=== PATIENT | male | born 1940 | race Hispanic/Latino ===

== ENCOUNTER 2017-10-23 13:58 | Observation (INO) | payer MEDICARE ==
[~2017-10-23 13:58] MED LIST: ISOVUE-370 76%-LOCM 1 ML ONE
[2017-10-23 15:30] LABS: Hemoglobin 10.3 g/dL (14.0-18.0); Mean Corpuscular HGB CONC 32.5 g/dL (32.0-36.0); Mean Corpuscular Hemoglobin 31.1 pg (27.0-31.0); Mean Corpuscular Volume 95.6 fl (80.0-94.0); Mean Platelet Volume 6.6 fL (7.4-10.4); Platelet Count 290 thou/uL (130-400); RBC Distribution Width 14.8 % (11.5-14.5); Red Blood Cell (RBC) Count 3.32 mill/uL (4.70-6.10); White Blood Cell (WBC) Count 6.3 thou/uL (4.8-10.8)
[2017-10-23 15:35] LABS: INR-International Normal Ratio 1.1; PTT 27.7 SEC (22.9-36.1); Prothrombin Time 14.6 SEC (12.0-14.7)
--- NOTE | 2017-10-23 15:44 | RAD ---
PORTABLE CHEST ONE VIEW 10/23/17 at 2:43 p.m. HISTORY: Syncope. FINDINGS: Comparison is made with the exam of 12/06/15. There are changes of median sternotomy. The heart size is stable. There is continued elevation of the left hemidiaphragm. Left sided AICD remains in place. No lobar consolidation, pneumothoraces, or lar ge effusions are seen. There is mild atelectatic changes of the left lung base. POS: [facility]
[2017-10-23 15:49] LABS: ALT (SGPT) 11 U/L (8-55); AST (SGOT) 24 U/L (5-34); Albumin 3.4 g/dL (3.4-4.8); Alkaline Phosphatase 35 U/L (40-150); Anion Gap 8 mmol/L (10-20); Anisocytosis SLIGHT = 6-15 cells (100X) (0-5/hpf); BUN (Urea Nitrogen) 12 mg/dL (8.4-25.7); Band 1 % (5-11); Bilirubin, Total 0.3 mg/dL (0.2-1.2); CK (CPK) 174 U/L (30-200); Calc. Creatinine Clearance 0 mL/min (70-130); Calcium 8.3 mg/dL (7.8-10.44); Carbon Dioxide 27 mmol/L (23-31); Chloride 108 mmol/L (98-107); Eosinophils 4 % (0-10); Estimated GFR-MDRD 53; Globulin 2.1 g/dL (2.4-3.5); Glucose 108 mg/dL (83-110); Lipase 43 U/L (8-78); Lymphocytes 10 % (21-51); MDiff Complete? YES; Monocytes 12 % (0-10); Neutrophil 72 % (42-75); PLT Morphology Comment Appears Adequate; Polychromasia SLIGHT = 2-3 cells (100X) (0-2/hpf); Potassium 4.4 mmol/L (3.5-5.1); Protein, Total 5.5 g/dL (5.8-8.1); Reactive Lymphocytes 1 % (0-10); Sodium 139 mmol/L (136-145)
[2017-10-23 15:54] LABS: CKMB 5.4 ng/mL (0-6.6); Troponin I 0.098 ng/mL (< 0.028)
--- NOTE | 2017-10-23 16:24 | CT ---
CT BRAIN WITHOUT CONTRAST 10/23/17 HISTORY: Syncope. FINDINGS: Comparison made with exam of 07/18/15. Encephalomalacic changes in the left temporal and frontal lobes are stable. No evidence of acute infa rct, hemorrhage, midline shift or abnormal extra-axial fluid collections are seen. The ventricular si ze is stable and the basilar cisterns patent. Postop changes in the left calvarium are again seen. IMPRESSION: No CT evidence of acute intracranial process. POS: [facility]
[2017-10-23 16:26] LABS: Magnesium 2.2 mg/dL (1.6-2.6)
--- NOTE | 2017-10-23 16:39 | CT ---
CT PULMONARY ANGIOGRAM WITH IV CONTRAST AND 3D POSTPROCESSIN10/23/17 HISTORY: Syncope, dizziness. FINDINGS: The opacification of the pulmonary arterial vasculature suboptimal. There is better opacification of the thoracic aorta. No filling defects are seen in the central pulmonary arteries. Peripheral embolis m cannot be excluded on this study. There are vascular calcifications without aneurysm or dissection of the thoracic aorta. No pericardial or pleural effusions are seen. There are atelectatic changes of the lower lung gregory. No pneumothoraces are seen. No lobar consolidation is noted. There are degene rative changes in the spine. IMPRESSION: No CT evidence of central pulmonary embolism. POS: [facility]
[2017-10-23 16:52] LABS: Bilirubin Negative (Negative); Blood, Urine Negative (Negative); Clarity CLEAR (Clear); Glucose, Urine (Dipstick) Negative (Negative); Leukocyte Negative (Negative); Nitrite Negative (Negative); Protein, Urine (Dipstick) Negative (Neg-Trace); Specific Gravity, Urine 1.014 (1.002-1.036); Urobilinogen 0.2 mg/dL (0.2-1.0)
[2017-10-23 19:22] LABS: Troponin I 0.099 ng/mL (< 0.028)
[2017-10-23] MEDS ORDERED: Sodium Chloride 0.45% 1,000 ML IV SCH (19:30)
[2017-10-23] MEDS: levETIRAcetam 500 MG TAB PO SCH (20:24)
[2017-10-23 20:58] VITALS: BMI 23.9
[2017-10-23] MEDS ORDERED: Atorvastatin Calcium 40 MG TAB PO SCH (21:00)
[2017-10-23] MEDS ORDERED: Gabapentin 300 MG CAP PO SCH (21:00)
[2017-10-23] MEDS ORDERED: Carvedilol 6.25 MG TAB PO SCH (21:00)
[2017-10-23] MEDS ORDERED: Docusate 100 MG CAP PO PRN (21:05)
[2017-10-23] MEDS ORDERED: Morphine 5 MG/ML SYRINGE SLOW IVP PRN (21:07)
[2017-10-23] MEDS ORDERED: traMADol HCl 50 MG TAB PO PRN (21:07)
[2017-10-23] MEDS ORDERED: Magnesium Citrate 300 ML BOT PO SCH (21:15)
[2017-10-23] MEDS: Carvedilol 3.125 MG TAB PO SCH (21:20)
[2017-10-23 22:23] LABS: Troponin I 0.091 ng/mL (< 0.028)
--- NOTE | 2017-10-24 00:51 | HP ---
DATE OF SERVICE: 10/23/2017 PRIMARY CARE PHYSICIAN: Dr. Giorgio Dunn. CHIEF COMPLAINT: Syncopal episode. HISTORY OF PRESENT ILLNESS: The patient states that when he has been getting up recently he has been getting dizzy. 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 It is unclear if it is vertiginous in natu re. He does report after he stood up from the chair attempted to he fell down and he suffered injury to his right frontal bone with no fracture on CT scan in the emergency department. No subdural blee ding. The patient states his pain has been controlled with Tylenol prior. Hedoes feel he is somewha t nauseated and constipated at this point in time requesting something to help clear them out. He castro s no other acute complaints or reported sick contacts in the last week here. On reviewing his said m edical record and chart in clinic system, he had an echo ran with [facility] last month , ejection fraction of 25%-30%. This is down from prior 2-3 years ago. He does have a history of ca rdiomyopathy, for which he was placed AICD prior. The patient has been transitioned on some of his h ome medications. More recently following that finding of worsening systolic dysfunction including En tresto, which his son brought him his medications, he appears to be compliant with, could not appear to be on Plavix any longer according to clinic records. He has been found to have seizure disorder, for which he is on gabapentin and Keppra. He has had a syncopal episode approximately 2 years ago wi th a dislocation to his finger similarly given his current heart condition as well. REVIEW OF SYSTEMS: No fevers, no chills, no cough, no congestion. Positive nausea, positive constip ation, no diarrhea, no abdominal pain. Positive head injury. Positive headache. No lower extremity edema. No chest pain. No shortness of breath. Positive word finding and speech difficulty. PHYSICAL EXAMINATION: VITAL SIGNS: Temperature of 98.4, pulse of 80, blood pressure 161/71, respiratory rate of 16, oxygen saturation 100% on room air. LABORATORY WORK: White blood cell count 6.3, hemoglobin 10.3, platelet count 219. D-dimer 0.5. INR of 1.1. Troponin x2 0.098, 0.099. BNP of 119. Albumin of 3.4, lipase of 43. TSH of 1.0, creatini ne of 1.3, sodium 139, potassium 4.4, CO2 27, glucose of 108, magnesium 2.2, total bilirubin 0.3. Ur ine completely normal, specific gravity of 1.01. Chest x-ray without acute cardiopulmonary events, s table placement of AICD to the left side. Brain CT negative for acute intracranial processes, soft t issue swelling over right forehead. CTA of chest soreness with no findings of pulmonary emboli, foll owup of a positive D-dimer. ALLERGIES: No known drug allergies. PAST MEDICAL HISTORY: Includes systolic congestive heart failure with prior cardiomyopathy, prior CV A, coronary artery disease, seizure disorder, CKD stage 2-3, hypertension, osteoarthritis, peripheral neuropathy. The patient has 4-vessel CABG, aortic valve replacement, AICD placement. SOCIAL HISTORY: The patient without reported tobacco or alcohol use. ASSESSMENT AND PLAN: Syncope with abrasion to right forehead, systolic congestive heart failure with coronary disease, cardiomyopathy, hypertension, seizure disorder, and elevated troponin. PLAN: Checking orthostatic vital signs. We will get physical therapy to walk the patient tomorrow t o assess stability for possible discharge home. Reviewed echo from last month and will electric meter repairer eat carotid Dopplers and EEG for differential of the patient's fall. Followup last troponin; however , this is likely elevated secondary to chronic cardiac history and mild chronic kidney disease. If a ny findings are positive, we will make additional consultations otherwise we will likely recommend fo llow up with Cardiology and Neurology in an outpatient basis. We will attempt to correct the patient 's constipation with magnesium citrate and p.r.n docusate sodium. We will have pacemaker interrogate d tomorrow as available.
[2017-10-24 06:07] LABS: ALT (SGPT) 11 U/L (8-55); AST (SGOT) 21 U/L (5-34); Albumin 3.3 g/dL (3.4-4.8); Alkaline Phosphatase 32 U/L (40-150); Anion Gap 9 mmol/L (10-20); BUN (Urea Nitrogen) 10 mg/dL (8.4-25.7); Bilirubin, Total 0.4 mg/dL (0.2-1.2); Calc. Creatinine Clearance 57 mL/min (70-130); Calcium 8.5 mg/dL (7.8-10.44); Carbon Dioxide 27 mmol/L (23-31); Chloride 108 mmol/L (98-107); Estimated GFR-MDRD 72; Globulin 2.1 g/dL (2.4-3.5); Glucose 105 mg/dL (83-110); Potassium 4.3 mmol/L (3.5-5.1); Protein, Total 5.4 g/dL (5.8-8.1); Sodium 140 mmol/L (136-145)
[2017-10-24 06:25] LABS: Band 1 % (5-11); Eosinophils 2 % (0-10); Hemoglobin 9.9 g/dL (14.0-18.0); Lymphocytes 20 % (21-51); MDiff Complete? YES; Mean Corpuscular HGB CONC 32.7 g/dL (32.0-36.0); Mean Corpuscular Hemoglobin 31.1 pg (27.0-31.0); Mean Platelet Volume 6.6 fL (7.4-10.4); Monocytes 14 % (0-10); Neutrophil 63 % (42-75); PLT Morphology Comment Appears Adequate; Platelet Count 271 thou/uL (130-400); RBC Distribution Width 14.9 % (11.5-14.5); Red Blood Cell (RBC) Count 3.18 mill/uL (4.70-6.10); White Blood Cell (WBC) Count 6.6 thou/uL (4.8-10.8)
[2017-10-24] MEDS ORDERED: carBAMazepine 200 MG TAB PO SCH (09:00)
[2017-10-24] MEDS ORDERED: Gabapentin 300 MG CAP PO SCH (09:00)
[2017-10-24] MEDS ORDERED: FLUoxetine HCl 20 MG CAP PO SCH (09:00)
[2017-10-24] MEDS ORDERED: Ramipril 5 MG CAP PO SCH (09:00)
[2017-10-24] MEDS ORDERED: Clopidogrel Bisulfate 75 MG TAB PO SCH (09:00)
[2017-10-24] MEDS ORDERED: Sacubitril 49 MG/Valsartan 51 MG TABLET PO SCH (09:00)
--- NOTE | 2017-10-24 09:13 | ULT ---
BILATERAL CAROTID DUPLEX ULTRASOUND: DATE: 10/24/17 HISTORY: Syncope. TECHNIQUE: Clarke scale ultrasound with color flow and spectral Doppler imaging of the extracranial carotid artery systems performed bilaterally. FINDINGS: There is plaque formation on either side. The peak systolic velocity in the right ICA measures 110 cm/second with an end-diastolic velocity of 34 cm/second and a systolic ratio of 1.00. The peak systolic velocity in the left ICA measures 135 cm/second with an end-diastolic velocity of 3 7 cm/second and a systolic ratio of 1.17 Flow in both vertebral arteries remains antegrade. 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 POS: [facility]
[2017-10-24] MEDS: Carvedilol 3.125 MG TAB PO SCH (09:24)
[2017-10-24] MEDS: levETIRAcetam 500 MG TAB PO SCH (09:25)
[2017-10-24 16:18] VITALS: BP 116/61; TEMP 98.6
--- NOTE | 2017-10-24 22:47 | DIS ---
PRIMARY CARE PHYSICIAN: Giorgio Dunn M.D. CHIEF COMPLAINT: Syncopal episode. ADMITTING HISTORY OF PRESENT ILLNESS: The patient was outside with his brother while they were doing yardwork. He was at the seated position. When he stood up from a seated position, he fell over and struck head on concrete to the right forehead with abrasion and contusion, had several seconds of po ssible tonic-clonic activity per brother; however, remained unconscious for about 1 minute. He came to and was transported to the Emergency Department and found to have elevated troponin. The patient had echocardiogram last month showing decreased ejection fraction of 24% to 30%, was started on Entre sto, continued on carvedilol; however, reduced to 3.125 for prior blood pressure history being margin al. The patient has a longstanding history of seizure disorder, treated by Norma calderon as well as gabapentin. 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 HOSPITAL COURSE: The patient's troponins remained indeterminate. He appears to have mild acute on c hronic kidney injury, which resolved with IV fluids. He was borderline orthostatic; however, this al so resolved with IV fluids. He was ambulated with physical therapy, walked over 500 feet without dif ficulty. They recommended discharge from physical therapy program during his hospital stay since he is doing so well. The patient had described dizziness with his position changes prior to syncopal ep isode. Today, he has been eating well. Reports no further dizziness when standing up, unable to silva minate if vertiginous or not. Brother states as well as patient that has been constipated and nausea guillermo and has been taking decreased oral intake, had good relief with magnesium citrate reportedly, marcie ires to continue on a p.r.n. basis as an outpatient to help relief his nausea and constipation. Pace maker was functioning normally during hospital stay. EEG was unable to be performed. Head CT and CT A showed no pulmonary emboli secondary to elevated D-dimer and no intracranial bleed. EKG showed pac ed rhythm as well as telemetry strips. Carotid Doppler repeat showed progression from mild to modera te stenosis of left side, right remained mild. Echo as above. Recommending follow up since the parviz ent had no further seizure-like activity or syncopal episodes and doing so well following IV rehydrat ion. He will be discharged home for outpatient followup with Neurology and the patient's PCP, Dr. Grabiel Dunn, in approximately one week. DISCHARGE DIAGNOSES: Include syncopal episode; abrasion; seizure disorder; systolic congestive heart failure; coronary artery disease, status post coronary artery bypass grafting; hypertension; elevate d troponin; and acute kidney injury. DISCHARGE CONDITION: Good. DISCHARGE MEDICATIONS: Continue home medications, p.r.n. magnesium citrate 300 mL for constipation.
--- NOTE | 2017-10-30 15:05 | EKG ---
Test Reason : Blood Pressure : / mmHG Vent. Rate : 080 BPM Atrial Rate : 070 BPM P-R Int : 000 ms QRS Dur : 118 ms QT Int : 416 ms P-R-T Axes : 000 -17 075 degrees QTc Int : 479 ms Electronic atrial pacemaker Left ventricular hypertrophy with QRS widening Cannot rule out Septal infarct , age undetermined Abnormal ECG Similar to 11/2015 except QR in V2 Confirmed by TYRON FRYE ([id number]), dictionary editor GIRISH HAMEED ([id number]) on 10/30/2017 3:05:10 PM Referred By: Confirmed By:TYRON FRYE
--- NOTE | 2017-10-30 15:06 | EKG ---
Test Reason : Blood Pressure : / mmHG Vent. Rate : 080 BPM Atrial Rate : 080 BPM P-R Int : 120 ms QRS Dur : 126 ms QT Int : 418 ms P-R-T Axes : -16 -04 082 degrees QTc Int : 482 ms Electronic atrial pacemaker Left ventricular hypertrophy with QRS widening Abnormal ECG Confirmed by TYRON FRYE ([id number]), editorial writer GIRISH HAMEED ([id number]) on 10/30/2017 3:05:58 PM Referred By: Confirmed By:TYRON FRYE
== END 2017-10-24 16:44 | disposition home or self-care (01) ==
LOC: EDBD → ERS 13:58 → 2SW 17:00
PROVIDERS: ADMIT Family Medicine; ATTEND Family Medicine
DX: R55 Syncope and collapse (principal); S06.2X1A Diffuse traumatic brain injury with loss of consciousness of 30 minutes or less, initial encounter; G40.909 Epilepsy, unspecified, not intractable, without status epilepticus; I25.10 Atherosclerotic heart disease of native coronary artery without angina pectoris; R79.89 Other specified abnormal findings of blood chemistry; M19.90 Unspecified osteoarthritis, unspecified site; I13.0 Hypertensive heart and chronic kidney disease with heart failure and stage 1 through stage 4 chronic kidney disease, or unspecified chronic kidney disease; N18.3 Chronic kidney disease, stage 3 (moderate); I50.20 Unspecified systolic (congestive) heart failure; N17.9 Acute kidney failure, unspecified; G62.9 Polyneuropathy, unspecified; Z86.73 Personal history of transient ischemic attack (TIA), and cerebral infarction without residual deficits; Z79.82 Long term (current) use of aspirin; Z79.899 Other long term (current) drug therapy; Z95.1 Presence of aortocoronary bypass graft; Z95.2 Presence of prosthetic heart valve; Z95.810 Presence of automatic (implantable) cardiac defibrillator; Z98.890 Other specified postprocedural states; Z91.81 History of falling; W18.30XA Fall on same level, unspecified, initial encounter
CPT/HCPCS: 70450; 71045; 71275; 80053; 81003; 82550; 82553; 83690; 83735; 83880; 84484 ×2; 85025; 85379; 85610; 85730; 86850; 86900; 86901; 93005; 93880; 96360; 96361 ×2; 97139 ×2; 99285; G0378; G8978; G8979; G8980; 36415; 84443